=== PATIENT | female | born 1995 | race Caucasian/White ===

== ENCOUNTER 2020-03-30 13:47 | Emergency (ER) | payer BC ==
[2020-03-30] MEDS ORDERED: Ondansetron 4 MG Tab.DIS PO ONE (14:30)
[2020-03-30] MEDS ORDERED: LORazepam 1 MG Tab PO ONE (14:30)
[2020-03-30] MEDS ORDERED: Morphine 2 MG/ML Syringe SUBCUT ONE (14:31)
--- NOTE | 2020-03-30 15:33 | EDM.PDOC ---
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 Has had previous smaller lacerations but they always healed on own. Has phone photo of pool of blood between her feet that collected within a short time of the incident. Bleeding has slowed. Has pain in labial/vaginal area. No other complaints. vaginal area Pain Score (Numeric/FACES): 5 - Related Data Allergies Allergy/AdvReac Type Severity Reaction Status Date / Time amoxicillin Allergy Other Verified 03/30/20 13:48 Home Meds: Home Meds . 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) (Painful periods) Psychiatric History: Reports: Depression Endocrine/Metabolic History: Reports: Obesity/BMI 30+ Dermatologic History: Reports: Other (See Below) (boil formation inner thighs and anterior abdomen) Social & Family History - Tobacco Use Smoking Status *Q: Current Every Day Smoker Years of Tobacco use: 9 Packs/Tins Daily: 0.2 - Caffeine Use Caffeine Use: Reports: Soda - Alcohol Use Alcohol Use History: Yes Alcohol Use Frequency: Rarely - Recreational Drug Use Recreational Drug Type: Reports: Marijuana/Hashish ED ROS GENERAL - Review of Systems Review Of Systems: Comprehensive ROS is negative, except as noted in HPI. ED EXAM, GENERAL - Physical Exam Exam: See Below Exam Limited By: No Limitations General Appearance: Alert, Anxious, Obese Eye Exam: Bilateral Eye: EOMI, PERRL Throat/Mouth: Normal Lips, Normal Voice, No Airway Compromise Head: Atraumatic, Normocephalic Neck: Supple Respiratory/Chest: No Respiratory Distress GI/Abdominal: Soft, Non-Tender (Female) Exam: Other (Lacerations noted on both inner labial areas, one approx 4cm in length. Also another small lac noted on right labia. Clots removed for better exam. Noted to continue to ooze blood and reform clots afterwards. ) Neurological: Alert, Oriented, Normal Cognition Psychiatric: Anxious Skin Exam: Warm, Dry Course - Vital Signs Last Recorded V/S: Last Vital Signs Temp 36.4 C 03/30/20 13:49 Pulse 138 H 03/30/20 13:49 Resp 20 03/30/20 13:49 BP 146/77 H 03/30/20 13:49 Pulse Ox 97 03/30/20 13:49 - Orders/Labs/Meds Meds: Medications Discontinued Medications Generic Name Dose Route Start Last Admin Trade Name Tj PRN Reason Stop Dose Admin Lidocaine HCl 5 ml 03/30/20 14:33 Xylocaine-Mpf 1% INJECT 03/30/20 14:34 ONETIME ONE Lorazepam 1 mg 03/30/20 14:30 Ativan PO 03/30/20 14:31 ONETIME ONE Morphine Sulfate 4 mg 03/30/20 14:31 Morphine SUBCUT 03/30/20 14:32 ONETIME ONE Ondansetron HCl 4 mg 03/30/20 14:30 Zofran Odt PO 03/30/20 14:31 ONETIME ONE - Re-Assessments/Exams Free Text/Narrative Re-Assessment/Exam: 03/30/20 15:57 Patient given Ativan as well as pain/nausea medication. 5cc of 1% Lidocaine injected near wounds to help with pain. Area cleansed by nursing staff/clots removed. Given the extensive multiple lacerations and continued bleeding a call was made to [facility] and patient discussed with OBGyn, . It was ultimately decided to send the patient to [facility] where could evaluate the wounds and determine if sutures/deeper repair required. Free Text/Narrative Re-Assessment/Exam: 03/30/20 16:09 Heart rate/anxiety improved at time of discharge. Patient did say to nurse during intake that she had brief suicidal thought several weeks ago but that it resolved and she has not had any additional thoughts of hurting self. Was on Lexapro but stopped it several years ago. It was recommended to her to follow up with her primary and consider restart of Lexapro. Also discussed anti- inflammatory/whole foods diet. Departure - Departure Time of Disposition: 15:52 Disposition: DC/Tfer to Acute Hospital 02 Condition: Good Clinical Impression: Laceration of labia minora Qualifiers: Encounter type: initial encounter Qualified Code(s): S31.41XA - Laceration without foreign body of vagina and vulva, initial encounter - Discharge Information *PRESCRIPTION DRUG MONITORING PROGRAM REVIEWED*: Not Applicable *COPY OF PRESCRIPTION DRUG MONITORING REPORT IN PATIENT JOSE: Not Applicable Referrals: Christine Abreu NP [Primary Care Provider] - Forms: ED Department Discharge Additional Instructions: Drive directly to [facility] ER at [facility] on [address]. Tell the ER that from [facility] is waiting to see you. She will see you in the ER. You do NOT need to be evaluated/screened by the ER staff. Sepsis Event Note - Evaluation Sepsis Screening Result: No Definite Risk - Focused Exam Vital Signs: Vital Signs Temp Pulse Pulse Resp BP Pulse Ox 03/30/20 13:49 36.4 C 138 H 99 20 146/77 H 97 Date Exam was Performed: 03/30/20 Time Exam was Performed: 16:09
== END 2020-03-30 16:14 ==
LOC: LL.ED 13:47
DX: S31.41XA Laceration without foreign body of vagina and vulva, initial encounter (principal); E66.9 Obesity, unspecified; F32.9 Major depressive disorder, single episode, unspecified; F17.210 Nicotine dependence, cigarettes, uncomplicated; Z68.41 Body mass index [BMI] 40.0-44.9, adult; Z88.1 Allergy status to other antibiotic agents; X58.XXXA Exposure to other specified factors, initial encounter
CPT/HCPCS: 96372; 99284; A9270-GY; J2001; J2270

== ENCOUNTER 2020-06-17 23:54 | Emergency (ER) | payer BC, OTHER ==
[2020-06-18] MEDS: Ondansetron 4 MG Tab.DIS PO ONE (00:27)
--- NOTE | 2020-06-18 01:23 | EDM.PDOC ---
ED HPI GENERAL MEDICAL PROBLEM - General Chief Complaint: Headache Stated Complaint: head injury Time Seen by Provider: 06/18/20 00:15 Source of Information: Reports: Patient History Limitations: Reports: No Limitations - History of Present Illness INITIAL COMMENTS - FREE TEXT/NARRATIVE: Pt hit in right side of head/face with impact wrench at work tonight Complains of ANDERSON and dizzy Some nausea Onset: Today, Sudden Location: Reports: Head, Face Context: Reports: Trauma Right Headache Pain Score (Numeric/FACES): 5 - Related Data Allergies Allergy/AdvReac Type Severity Reaction Status Date / Time amoxicillin Allergy Other Verified 03/30/20 13:48 Home Meds: Home Meds Escitalopram Oxalate 1 tab PO DAILY 06/17/20 [History] Famotidine 1 tab PO DAILY 06/17/20 [History] 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 (See Below) Psychiatric History: Reports: Anxiety, Depression Endocrine/Metabolic History: Reports: Obesity/BMI 30+ Dermatologic History: Reports: Other (See Below) (boil formation inner thighs and anterior abdomen) Other Dermatologic History: small abcesses per pt report on inner thighs, lower buttocks, and groin/waist - Past Surgical History HEENT Surgical History: Reports: Adenoidectomy, Tonsillectomy, Other (See Below) Other HEENT Surgeries/Procedures: wisdom tooth removed Social & Family History - Tobacco Use Smoking Status *Q: Current Every Day Smoker Years of Tobacco use: 9 Packs/Tins Daily: 0.5 - Caffeine Use Caffeine Use: Reports: Soda, Tea Other Caffeine Use: 2 pops per week - Recreational Drug Use Recreational Drug Use: Yes Drug Use in Last 12 Months: Yes Recreational Drug Type: Reports: Marijuana/Hashish Recreational Drug Use Frequency: Socially ED ROS GENERAL - Review of Systems Review Of Systems: See Below HEENT: Reports: Other (Right face pain) Respiratory: Reports: No Symptoms Cardiovascular: Reports: No Symptoms GI/Abdominal: Reports: No Symptoms Musculoskeletal: Reports: No Symptoms Skin: Reports: No Symptoms Neurological: Reports: Headache ED EXAM, HEAD INJURY - Physical Exam Exam: See Below General Appearance: Mild Distress Head: Facial Swelling, Other (Right face and scalp with mild swelling No ecchymosis Tender with palpation) Eyes: Bilateral Eye: EOMI, PERRL Ears: Normal External Exam Nose: Normal Inspection Throat/Mouth: Normal Oropharynx Neck: Non-Tender Neurologic: No Motor/Sensory Deficits, Normal Mood/Affect, Oriented x 3, Other (GCS 15) - Sanjay Coma Score Best Eye Response (Sanjay): (4) Open Spontaneously Best Verbal Response (Snajay): (5) Oriented Best Motor Response (Sanjay): (6) Obeys Commands Wilkinson Total: 15 Course - Vital Signs Last Recorded V/S: Last Vital Signs Temp 99.3 F 06/17/20 23:59 Pulse 82 06/17/20 23:59 Resp 16 06/17/20 23:59 BP 122/71 06/17/20 23:59 Pulse Ox 100 06/17/20 23:59 - Orders/Labs/Meds Orders: Active Orders 24 hr Category Date Time Status Head wo Cont [CT] Stat Exams 06/18/20 00:07 Taken Meds: Medications Discontinued Medications Generic Name Dose Route Start Last Admin Trade Name Freq PRN Reason Stop Dose Admin Ondansetron HCl 4 mg 06/18/20 00:19 06/18/20 00:27 Zofran Odt PO 06/18/20 00:20 4 mg ONETIME ONE Administration - Re-Assessments/Exams Free Text/Narrative Re-Assessment/Exam: 06/18/20 01:22 Pt stable in ER CT negative Departure - Departure Time of Disposition: 01:30 Disposition: Home, Self-Care 01 Clinical Impression: Facial contusion Qualifiers: Encounter type: initial encounter Qualified Code(s): S00.83XA - Contusion of other part of head, initial encounter Concussion Qualifiers: Encounter type: initial encounter Loss of consciousness presence/duration: without LOC Qualified Code(s): S06.0X0A - Concussion without loss of consciousne ss, initial encounter - Discharge Information *PRESCRIPTION DRUG MONITORING PROGRAM REVIEWED*: Not Applicable *COPY OF PRESCRIPTION DRUG MONITORING REPORT IN PATIENT JOSE: Not Applicable Instructions: Head Injury, Adult, Contusion, [id number], Concussion, Adult, [id number], Post-Concussion Syndrome, [id number] Referrals: Christine Abreu NP [Primary Care Provider] - Additional Instructions: Follow up in clinic Tylenol or Motrin as needed Ice as needed Sepsis Event Note (ED) - Evaluation Sepsis Screening Result: No Definite Risk - Focused Exam Vital Signs: Vital Signs Temp Pulse Resp BP Pulse Ox 06/17/20 23:59 99.3 F 82 16 122/71 100 - My Orders Last 24 Hours: My Active Orders 06/18/20 00:07 Head wo Cont [CT] Stat - Assessment/Plan Last 24 Hours: My Active Orders 06/18/20 00:07 Head wo Cont [CT] Stat
== END 2020-06-18 01:35 | disposition home or self-care (01) ==
LOC: LL.ED 23:54
DX: S06.0X0A Concussion without loss of consciousness, initial encounter (principal); S00.83XA Contusion of other part of head, initial encounter; Z79.899 Other long term (current) drug therapy; F41.9 Anxiety disorder, unspecified; F32.9 Major depressive disorder, single episode, unspecified; E66.9 Obesity, unspecified; F17.210 Nicotine dependence, cigarettes, uncomplicated; Z68.41 Body mass index [BMI] 40.0-44.9, adult; Z88.1 Allergy status to other antibiotic agents; W22.8XXA Striking against or struck by other objects, initial encounter; Y99.0 Civilian activity done for income or pay
CPT/HCPCS: 70450; 99283; 99284-25; A9270-GY